=== PATIENT | female | born 1960 | race Caucasian/White ===

== ENCOUNTER 2018-11-01 20:48 | Emergency (ER) | payer BC, MEDICARE ==
[~2018-11-01] VITALS: Ht 154.9 cm; Wt 95.2 kg
[2018-11-01 20:50] VITALS: BP 105/65
[2018-11-01] MEDS ORDERED: DICL50TA4 PO (22:12)
--- NOTE | 2018-11-01 22:12 | PHYS DOC ---
Past History Past Medical History: Hypertension Past Surgical History: Tonsillectomy Alcohol Use: Occasionally Drug Use: None Adult General Chief Complaint Chief Complaint: UPPER EXTREMITY INJURY HPI HPI Patient is a 58-year-old female who presents with complaint of left elbow pain after slipping and falling in the shower this evening. Patient states that she thinks that is just bruised but states that she's having a lot of pain with flexion and extension of the elbow so wanted to get it x-rayed. She denies any other injuries. She rates pain as moderate.[] Review of Systems Review of Systems Constitutional: Denies fever or chills [] Respiratory: Denies cough or shortness of breath [] Cardiovascular: No additional information not addressed in HPI [] Musculoskeletal: Positive left elbow pain [] Integument: Denies rash or skin lesions [] Physical Exam Physical Exam Constitutional: Well developed, well nourished, no acute distress, non-toxic appearance. [] HENT: Normocephalic, atraumatic, bilateral external ears normal, oropharynx moist, no oral exudates, nose normal. [] Eyes: PERRLA, EOMI, conjunctiva normal, no discharge. [] Neck: Normal range of motion, no tenderness, supple, no stridor. [] Cardiovascular:Heart rate regular rhythm, no murmur [] Lungs & Thorax: Bilateral breath sounds clear to auscultation [] Abdomen: Bowel sounds normal, soft, no tenderness, no masses, no pulsatile masses. [] Skin: Warm, dry, no erythema, no rash. [] Back: No tenderness, no CVA tenderness. [] Extremities: No tenderness, no cyanosis, no clubbing, ROM intact, no edema. [] Neurologic: Alert and oriented X 3, normal motor function, normal sensory function, no focal deficits noted. [] Psychologic: Affect normal, judgement normal, mood normal. [] Current Patient Data Vital Signs Vital Signs Date Time Temp Pulse Resp B/P (MAP) Pulse Ox O2 Delivery O2 Flow Rate FiO2 11/01/18 20:50 97.6 76 18 97 Room Air EKG EKG [] Radiology/Procedures Radiology/Procedures [] Impressions: PROCEDURE: ELBOW LEFT 3V ELBOW LEFT 3V History: Fall in bathroom, hit elbow Comparison: None. Findings: 3 views of the left elbow are submitted. No acute fracture or dislocation is identified by radiographs. There is no significant displacement of fat pads about elbow. Impression: 1. No acute osseous abnormality is identified by radiographs. Electronically signed by: Nehemias Doty MD (11/01/2018 10:07 PM) [facility] DICTATED AND SIGNED BY: NEHEMIAS DOTY MD DATE: 11/01/182206 Course & Med Decision Making Course & Med Decision Making Pertinent Labs and Imaging studies reviewed. (See chart for details) [] Dragon Disclaimer Dragon Disclaimer This electronic medical record was generated, in whole or in part, using a voice recognition dictation system. Departure Departure: Impression: Primary Impression: Left elbow contusion Disposition: HOME, SELF-CARE Condition: STABLE Referrals: DINO MUNGUIA MD (PCP) Patient Instructions: Elbow Contusion Scripts Diclofenac Sodium (DICLOFENAC SODIUM) 50 Mg Tablet.dr 1 TAB PO BID PRN for PAIN, #20 TAB Prov: HUSSEIN GARIBAY Jr. DO 11/01/18 Problem Qualifiers Primary Impression: Left elbow contusion Encounter type: initial encounter Qualified Codes: S50.02XA - Contusion of left elbow, initial encounter HUSSEIN GARIBAY Jr. DO Nov 01, 2018 22:12
== END 2018-11-01 22:30 | disposition home or self-care (01) ==
LOC: ER 20:48
DX: S50.02XA Contusion of left elbow, initial encounter (principal); I10 Essential (primary) hypertension; W18.2XXA Fall in (into) shower or empty bathtub, initial encounter; Y93.E1 Activity, personal bathing and showering; Y92.091 Bathroom in other non-institutional residence as the place of occurrence of the external cause; Y99.8 Other external cause status
CPT/HCPCS: 73080; 99284